=== PATIENT | female | born 1975 | race Caucasian/White ===

== ENCOUNTER 2016-10-05 05:08 | Day surgery (SDC) | payer BC ==
[2016-09-28 11:01] VITALS: BMI 26.1
--- NOTE | 2016-10-04 14:48 | HP ---
Past Medical History - Admission Chief Complaint: Prolonged heavy vaginal bleeding. History of Present Illness: 41 year old female who has regular menses but recently have been associated with heavy bleeding, passing of clots and lasting 9 to 10 days. LMP 09/13/16. A pelvuc ultrasound performed on September 26, 2016 revealed an anteverted uterus measuring 10 by 5 by 6 cm. The endometrium measured 8 mm. There were present anterior and a posterior fibroid. Pap smear and HPV were negative. History Source: Patient Limitations to Obtaining History: No Limitations - Past Medical History ...: 3 ...Para: 2 ...Term: 2 ...Spon : 1 Heme/Onc: Yes: Anemia (Hemoglobin September 23, 2016 10.3 gm) - Past Surgical History Past Surgical History: Yes: Tubal Ligation (Laparoscopy tubal cautery 2013) Hx Myomectomy: No Hx Transabdominal Cerclage: No - Smoking History Smoking history: Never smoked Have you smoked in the past 12 months: No - Alcohol/Substance Use Hx Alcohol Use: No - Social History Usual Living Arrangement: Yes: With Spouse Home Medications - Allergies Allergies/Adverse Reactions: Allergies Allergy/AdvReac Type Severity Reaction Status Date / Time No Known Drug Allergies Allergy Verified 10/05/16 09:00 - Home Medications Home Medications: Ambulatory Orders Meloxicam [Mobic] 15 mg PO PRN PRN 10/05/16 Nadolol 20 mg PO PRN PRN 10/05/16 Family Disease History - Family Disease History Family Disease History: Other: Mother (Renal disease) Review of Systems - Review of Systems Constitutional: reports: No Symptoms Cardiovascular: reports: No Symptoms Respiratory: reports: No Symptoms Genitourinary: reports: No Symptoms Breasts: reports: No Symptoms Reported (Negative mammography September 2016) Hematology/Lymphatic: reports: No Symptoms Physical Exam-CREDIT DEPARTMENT MANAGER Constitutional: Yes: Well Nourished, No Distress, Calm Neck: Yes: WNL, Supple, Trachea Midline Cardiovascular: Yes: WNL, Regular Rate and Rhythm Respiratory: Yes: Regular, CTA Bilaterally Gastrointestinal: Yes: WNL, Soft (Non tender no masses), Tenderness, Epigastrium Pelvis: Yes: WNL External Genitalia: Yes: Normal Vaginal Exam: Yes: Normal Cervix: Yes: Normal Uterus: Yes: Normal, Freely Moveable, Anteverted Adnexa: Normal: Bilateral Edema: No Psychiatric: Yes: WNL Imaging - Results Ultrasound: Report Reviewed (Anteverted fibroid uterus.) Assessment/Plan Impression: Menorrhagia Prolonged Bleeding Anemia Plan: D and C with Hysteroscopy 2016
[2016-10-05] MEDS ORDERED: MIDAZOLAM HCL 2 MG/2 ML SINGLE DOSE VIAL ONE (10:28)
[2016-10-05] MEDS ORDERED: PROPOFOL 20 ML ONE (10:28)
[2016-10-05] MEDS ORDERED: LIDOCAINE HCL/PF 2% SDV 5ML VIAL ONE (10:28)
[2016-10-05 11:50] VITALS: TEMP 98.5
[2016-10-05 13:42] VITALS: BP 101/66; PULSE 75
--- NOTE | 2016-10-06 08:49 | OP ---
DATE OF OPERATION: 10/05/2016 PREOPERATIVE DIAGNOSES: Menorrhagia, prolonged vaginal bleeding. POSTOPERATIVE DIAGNOSES: Menorrhagia, prolonged vaginal bleeding. OPERATION: Dilatation and curettage, hysteroscopy. SURGEON: Jr Kwong MD ANESTHESIA: Arcelia Lea CRNA SPECIMEN: Endometrial curettings. BLOOD LOSS: 10 mL DESCRIPTION OF PROCEDURE: Under general anesthesia, patient placed in the dorsal lithotomy position, prepped and draped in the usual sterile manner. A pelvic examination was performed revealing a uterus that was anterior, slightly enlarged, mobile. Adnexa not palpable. A weighted speculum was inserted in the vagina. The anterior lip of the cervix grasped with a sharp-tooth tenaculum. The uterus sounded to approximately 9 cm. With a 5-mm hysteroscope and saline as the distending medium, the uterine cavity was visualized, revealing a slightly irregular, smooth uterine cavity. No evidence of any polyps or submucosal fibroids. Both ostia were visualized. With these findings noted, the hysteroscope was then removed. The cervix was dilated. The uterus was then curetted. Proliferative-type tissue was obtained. The patient tolerated the procedure well and was brought to recovery in satisfactory condition. JR KWONG M.D. [id number]
--- NOTE | 2016-10-08 12:02 | PATH ---
Surgical Pathology Report Patient Name: ATIYA JIMENEZ [facility]. Rec. #: [id number] /Age/Gender: 1975 (Age: 41) / F Account: [id number] Location: [facility] SURGICAL Taken: 10/05/2016 Received: 10/05/2016 Reported: 10/08/2016 Physicians: Jr Harman M.D. Specimen(s) Received ENDOMETRIAL CURETTINGS Clinical History 41-year-old prolonged heavy menses, fibroid uterus Final Diagnosis ENDOMETRIUM, CURETTAGE: POLYPOID AND NON-POLYPOID FRAGMENTS OF SECRETORY ENDOMETRIUM. FRAGMENTS OF BENIGN SMOOTH MUSCLE. FRAGMENTS OF BENIGN ENDOCERVICAL TISSUE. SCANT FRAGMENTS OF BENIGN SQUAMOUS EPITHELIUM. Electronically Signed Olegario Dumont M.D. Gross Description Received in formalin labeled "endometrial curettings" is a 4.0 x 3.8 x 0.4 cm aggregate of mcdowell-brown soft tissue fragments admixed with blood clot. The formalin is filtered and the specimen is entirely submitted in 3 cassettes. /10/05/[facility]
== END 2016-10-05 13:00 | disposition home or self-care (01) ==
LOC: JASU-SURG 05:08
PROVIDERS: ATTEND Obstetrics & Gynecology
PROC: 0UDB8ZX Extraction of Endometrium, Via Natural or Artificial Opening Endoscopic, Diagnostic (ICD-10-PCS; principal; 2016-10-05 10:00)
DX: N92.0 Excessive and frequent menstruation with regular cycle (principal)
CPT/HCPCS: 84703; 88305-TC; 94760

== ENCOUNTER 2017-10-22 23:00 | Emergency (ER) | payer BC ==
[2017-10-22] MEDS ORDERED: ALBUTEROL SO4 2.5/IPRATROPIUM 0.5 INH SOL 3 ML VIAL.NEB. NEB ONE (23:34)
[2017-10-22 23:57] LABS: BASO % 0.6 % (0-2.0); EOS % 1.2 % (0-4.5); HEMATOCRIT 33.6 % (32.4-45.2); HEMOGLOBIN 11.5 GM/dL (10.7-15.3); LYMPH % 32.3 % (8-40); MCH 29.1 pg (25.7-33.7); MCHC 34.3 g/dl (32.0-36.0); MEAN CELL VOLUME 84.8 fl (80-96); MEAN PLT VOLUME 9.3 fl (7.5-11.1); MONO % 9.6 % (3.8-10.2); NEUT % 56.3 % (42.8-82.8); PLATELET COUNT 168 K/MM3 (134-434); RBC 3.97 M/mm3 (3.60-5.2); RDW 12.7 % (11.6-15.6); WHITE BLOOD COUNT 5.3 K/mm3 (4.0-10.0)
--- NOTE | 2017-10-23 00:02 | PDOC ---
History of Present Illness - General Chief Complaint: Shortness of Breath Stated Complaint: SOB Time Seen by Provider: 10/22/17 23:34 History Source: Patient Exam Limitations: No Limitations - History of Present Illness Initial Comments: 10/22/17 23:58 The patient is a 42F with a PMH of asthma, seasonal allergies, and GERD who presents to the ER with complaints of shortness of breath and chest heaviness. The patient states that she first developed her SOB on October 10 when she traveled to [place]. She dismissed it as allergies and an adjustment to weather in [place]. She returned home yesterday from [place] and has felt continuous shortness of breath and chest heaviness. Earlier tonight, she felt a brief episode where she was unable to catch her breath and she called EMS. She denies fever, chills, nausea, vomiting but admits to chest heaviness which is retrosternal without radiation. She denies any OCP use, hemoptysis, hx of DVT/PE , swelling of LE, smoking. Past History - Past Medical History Allergies/Adverse Reactions: Allergies Allergy/AdvReac Type Severity Reaction Status Date / Time No Known Drug Allergies Allergy Verified 10/22/17 23:48 Home Medications: Ambulatory Orders Meloxicam [Mobic] 15 mg PO PRN PRN 10/05/16 Nadolol 20 mg PO PRN PRN 10/05/16 Albuterol Sulfate Inhaler - [Ventolin Hfa Inhaler -] 1 - 2 inh PO Q4H #1 inhaler 10/23/17 Anemia: No Asthma: Yes Cancer: No Cardiac Disorders: No CVA: No COPD: No CHF: No Dementia: No Diabetes: No GI Disorders: Yes (ACID REFLUX) Disorders: No HTN: No Hypercholesterolemia: No Liver Disease: No Seizures: No Thyroid Disease: No - Surgical History Abdominal Surgery: No Appendectomy: No Cardiac Surgery: No Cholecystectomy: No Lung Surgery: No Neurologic Surgery: No Orthopedic Surgery: No - Suicide/Smoking/Psychosocial Hx Smoking History: Never smoked Have you smoked in the past 12 months: No Information on smoking cessation initiated: No Hx Alcohol Use: No Drug/Substance Use Hx: No Substance Use Type: None Hx Substance Use Treatment: No Review of Systems - Review of Systems Able to Perform ROS?: Yes Comments:: 10/23/17 00:02 GENERAL/CONSTITUTIONAL: No fever or chills. No weakness. HEAD, EYES, EARS, NOSE AND THROAT: No change in vision. No ear pain or discharge. No sore throat. CARDIOVASCULAR: Positive for chest pressure. No chest pain, palpitations, or lightheadedness. RESPIRATORY: Positive for shortness of breath. No cough, wheezing, or hemoptysis. GASTROINTESTINAL: No nausea, vomiting, diarrhea, constipation, or abdominal pain. GENITOURINARY: No dysuria, frequency, hematuria, or change in urination. MUSCULOSKELETAL: No joint or muscle swelling or pain. No neck or back pain. SKIN: No rash or lesions. NEUROLOGIC: No headache, numbness, tingling, focal weakness, loss of consciousness, or change in strength/sensation. ENDOCRINE: No increased thirst. No abnormal weight change. HEMATOLOGIC/LYMPHATIC: No anemia, easy bleeding, or history of blood clots. ALLERGIC/IMMUNOLOGIC: No hives or skin allergy. Is the patient limited Uzbek proficient: No *Physical Exam - Vital Signs Last Vital Signs Temp Pulse Resp BP Pulse Ox 97.7 F 75 20 104/75 98 10/22/17 23:49 10/22/17 23:49 10/22/17 23:49 10/22/17 23:49 10/22/17 23:49 - Physical Exam Comments: 10/23/17 00:04 GENERAL: Well developed, well nourished. Awake and alert. In mild distress. HEENT: Normocephalic, atraumatic. Hearing grossly normal. Moist mucous membranes. PERRLA, EOMI. No conjunctival pallor. Sclera are non-icteric. NECK: Supple. Full ROM. CARDIOVASCULAR: Regular rate and rhythm. No murmurs, rubs, or gallops. PULMONARY: No evidence of respiratory distress. Lungs clear to auscultation bilaterally. No wheezing, rales or rhonchi. ABDOMINAL: Soft. Non-tender. Non-distended. No rebound or guarding. GENITOURINARY: No CVA tenderness bilaterally. MUSCULOSKELETAL: Normal range of motion at all joints. No bony deformities or tenderness. EXTREMITIES: No cyanosis. No clubbing. No edema. No calf tenderness or swelling. SKIN: Warm and dry. Normal capillary refill. No rashes. No jaundice. NEUROLOGICAL: Alert, awake, appropriate. Cranial nerves 2-12 intact. Normal speech. Gait is normal without ataxia. PSYCHIATRIC: Cooperative. Good eye contact. Appropriate mood and affect. ED Treatment Course - LABORATORY CBC & Chemistry Diagram: 10/22/17 23:45 10/22/17 23:45 - RADIOLOGY Radiology Studies Ordered: Category Date Time Status CHEST CTA [CT] Stat CT Scan 10/22/17 23:34 Ordered Medical Decision Making - Medical Decision Making 10/23/17 00:04 The patient is a 42F with a PMH of asthma, seasonal allergies, and GERD who presents with SOB and chest heaviness concerning for PE due to pt's recent travel. Pending EKG and labs and CTA. Pt has normal vitals (not hypoxic, tachycardic, or tachypneic). 10/23/17 01:44 EKG unremarkable. CBC, CMP, troponin negative. CTA negative for acute PE or dissection. Will give 2 duonebs and reassess. 10/23/17 02:28 Pt states she feels much better. Will d/c w/ PCP f/u. *DC/Admit/Observation/Transfer Diagnosis at time of Disposition: Chest heaviness - Discharge Dispostion Disposition: HOME Condition at time of disposition: Stable Decision to Admit order: No - Prescriptions Prescriptions: Albuterol Sulfate Inhaler - [Ventolin Hfa Inhaler -] 1 - 2 inh PO Q4H #1 inhaler - Referrals Referrals: Denis Osorio MD [Primary Care Provider] - - Patient Instructions Printed Discharge Instructions: DI for Atypical Chest Pain Additional Instructions: Please follow up with your primary care physician in 2-3 days. Please return to the ER if you have any signs or symptoms of chest pain, shortness of breath, uncontrollable fever, chills, nausea, vomiting, numbness, tingling, or weakness in any part of your body, changes in vision, or slurred speech. Please take your medications as prescribed. Please return to the ER if symptoms persist, worsen, or new symptoms arise. - Post Discharge Activity Forms/Work/School Notes: Back to Work
[2017-10-23 00:05] VITALS: TEMP 97.7; BMI 27.6
[2017-10-23 00:11] LABS: INR 0.94 (0.83-1.09); PROTHROMBIN TIME (PATIENT) 10.6 SEC (9.7-13.0)
[2017-10-23 00:20] LABS: ALBUMIN 3.6 g/dl (3.4-5.0); ANION GAP 8 MMOL/L (8-16); BILIRUBIN,TOTAL 0.2 mg/dL (0.2-1.0); BLOOD UREA NITROGEN 12 mg/dL (7-18); CALCIUM 8.5 mg/dL (8.5-10.1); CHLORIDE 108 mmol/L (98-107); CO2 27 mmol/L (21-32); CREATININE 0.7 mg/dL (0.55-1.02); GLUCOSE,RANDOM 94 mg/dL (74-106); POTASSIUM 3.7 mmol/L (3.5-5.1); SGOT/AST 27 U/L (15-37); SGPT/ALT 41 U/L (12-78); SODIUM 143 mmol/L (136-145); TOT PROT 6.7 g/dl (6.4-8.2)
[2017-10-23 00:22] LABS: ALK PHOS 38 U/L (45-117)
--- NOTE | 2017-10-23 01:56 | PDOC ---
Attending Attestation - Resident Resident Name: Chacorta Peraza - ED Attending Attestation I have performed the following: I have examined & evaluated the patient, The case was reviewed & discussed with the resident, I agree w/resident's findings & plan - HPI HPI: 10/23/17 03:06 Devon 42 YOF PMHx GERD, gastritis, asthma with recent travel from [place] presenting with progressive SOB and chest heaviness for the past week and a half. Patient is attributing her symptoms to weather changes and recent travel to [place]. Patient reports returning from [place] yesterday. Patient notes her shortness of breath worsened today prompting her to come to the ER for evaluation. Patient denies any history of DVT or PE. The patient denies headache, and dizziness. Denies fever, chills, nausea, vomit, diarrhea, and constipation. Denies dysuria, frequency, urgency, and hematuria. Allergies: NKA Past surgical history: None reported. Social history: No reported alcohol, drug, or cigarette use. PCP: Dr. Osorio - Physicial Exam PE: 10/23/17 03:06 NAD, well appearing, MMM, nl conjunctiva, anicteric; neck supple. lungs clear, RRR, abdomen soft nontender. REINOSO x4, no focal neuro deficits. No peripheral edema. normal color for ethnicity, WWP. - Medical Decision Making 10/23/17 01:58 MDM: Devon 42 YOF PMHx GERD, gastritis, asthma with recent travel from [place] presenting with progressive SOB and chest heaviness x 1.5 weeks, which she attributed to weather related changes and travel. No leg swelling, abd pain, vomiting, diarrhea, cough or congestion, mckeon or dizziness, fevers or chills. DDx chest pain: ACS, PE, dissection, PUD, esophageal spasm, GERD, gastritis, costochondritis, pneumonia, pleurisy, pericarditis/myocarditis. dehydration, electrolyte/metabolic derangements. Allergies, congestion, viral syndrome Vital signs reviewed, wnl. reassuring, no respiratory distress. Medical Plan: CBC, CMP, ECG, trops/card panel, CXR, CT Angio to r/o PE Prior notes reviewed, including admissions, discharges and consultations. laboratory results and imaging reviewed, basic labs and lytes wnl, notable forneg trops, reassuring. EKG normal sinus rhythm, no interval abnormalities, narrow QRS, ST and T wave segments and morphology normal. Nonspecific T wave abnormalities, not significantly changed from prior. CT angio chest neg for PE or acute pulm/CVS pathology Trial of albuterol nebs, likely allergies with recent travel. Avoid triggers and precipitants Dispo: Pt to be discharged in stable condition. Patient and family made aware of impression and plan, return precautions discussed (including but not limited to worsening pain or symptoms), fevers, or signs of infection, chest pain, respiratory distress, inability to tolerate oral intake, dehydration, syncope, or neurologic changes). Follow up with PMD and/or specialist as recommended, follow up information provided, take medications as instructed for duration of time. continue with supportive care, avoid triggers and precipitants. All questions answered to patient's satisfaction and expressed understanding and comfort with this. 10/23/17 02:06
[2017-10-23 02:45] VITALS: BP 119/73
--- NOTE | 2017-10-23 11:31 | EKG ---
Test Reason : Blood Pressure : / mmHG Vent. Rate : 076 BPM Atrial Rate : 076 BPM P-R Int : 144 ms QRS Dur : 078 ms QT Int : 416 ms P-R-T Axes : 051 066 057 degrees QTc Int : 468 ms NORMAL SINUS RHYTHM NORMAL ECG WHEN COMPARED WITH ECG OF 24-MAY-2011 11:04, NO SIGNIFICANT CHANGE WAS FOUND Confirmed by MARIBEL VALERO MD ([id number]) on 10/23/2017 11:31:30 AM Referred By: Confirmed By:MARIBEL VALERO MD
[2017-10-24 02:52] VITALS: PULSE 72
== END 2017-10-23 02:46 | disposition home or self-care (01) ==
LOC: JER 23:00
PROC: 3E0F7GC Introduction of Other Therapeutic Substance into Respiratory Tract, Via Natural or Artificial Opening (ICD-10-PCS; principal; 2017-10-22)
DX: R07.89 Other chest pain (principal); J45.909 Unspecified asthma, uncomplicated; K21.9 Gastro-esophageal reflux disease without esophagitis
CPT/HCPCS: 36415; 71275-TC; 80053; 82550; 84484; 84703; 85025; 85610; 93005; 93010; 99283-25; J7620

== ENCOUNTER 2018-07-18 12:00 | Day surgery (SDC) | payer BC ==
[2018-07-17 08:28] VITALS: BMI 28.3
--- NOTE | 2018-07-18 13:38 | HP ---
History & Physical Update - History History: No Change (Menorrhagia, firboid uterus. Pt admitted for hysteroscopy and endometrial ablation) - Physical Physical: No Change - Assessment Assessment: No Change (Pt is currently bleeding and reports heavy bleeding at times.) - Plan Plan: No Change (Hysteroscopy, D&C, thermal endometrial ablation. We had discussed the risks, benefits, alternatives of surgery at length including but not limited to infection, bleeding, scarring, perforation, amenorrhea, infertility, hysterectomy, etc. We also discussed the specific risks of thermal ablation including thermal injury, and failed ablation. The pt verbalized understanding and requested to proceed with surgery. I emphasized that all surgeries have risks and no guarantees can be provided)
[2018-07-18] MEDS ORDERED: SUCCINYLCHOLINE CHLORIDE 200 MG/10 ML VIAL ONE (13:40)
[2018-07-18] MEDS ORDERED: PROPOFOL 20 ML ONE ×3 (13:40→13:43)
[2018-07-18] MEDS ORDERED: MIDAZOLAM HCL 2 MG/2 ML SINGLE DOSE VIAL ONE (13:40)
[2018-07-18] MEDS ORDERED: DEXAMETHASONE SOD PHOSPHATE 4 MG/1 ML VIAL ONE (13:40)
[2018-07-18] MEDS ORDERED: ceFAZolin SODIUM 1 GM VIAL IVPB ONE (13:42)
[2018-07-18] MEDS ORDERED: ceFAZolin SODIUM 1 GM VIAL ONE (13:45)
[2018-07-18] MEDS ORDERED: KETOROLAC TROMETHAMINE 30 MG/1 ML VIAL ONE (14:20)
[2018-07-18] MEDS ORDERED: ONDANSETRON 4 MG/2 ML VIAL IVPUSH PRN (14:46)
[2018-07-18] MEDS ORDERED: oxyCODONE HCL 5 MG TABLET PO PRN (14:46)
--- NOTE | 2018-07-18 14:51 | OP ---
Operative Note - Note: Operative Date: 07/18/18 Pre-Operative Diagnosis: Menometrorrhagia, fibroid uterus Operation: Hysteroscopy, D&C, thermal endometrial ablation Findings: Active uterine bleeding with clots. Uterine fibroids palpated on exam. Uncomplicated hysteroscopy, D&C, endometrial ablation Post-Operative Diagnosis: Same as Pre-op Surgeon: Ovidio Renee Anesthesiologist/ELECTRIC SERVICEMAN: Lucrecia Simental Anesthesia: General Specimens Removed: Endometrial curettings Estimated Blood Loss (mls): 30 Drains & Tubes with Location: Straight cath prior to surgery Drains, Volume Out (mls): 15 Blood Volume Replaced (mls): 0 Fluid Volume Replaced (mls): 400 Operative Report Dictated: Yes
[2018-07-18] MEDS ORDERED: LACTATED RINGERS SOLUTION 1,000 ML IV SCH (15:00)
[2018-07-18] MEDS ORDERED: ACETAMINOPHEN 1000 MG/100 ML VIAL (NON FORMULARY) IVPB ONE (15:33)
[2018-07-18] MEDS ORDERED: ACETAMINOPHEN INJECTION 100 ML IVPB ONE (15:34)
[2018-07-18] MEDS ORDERED: oxyCODONE HCL 5 MG TABLET ONE (17:38)
[2018-07-18] MEDS ORDERED: oxyCODONE HCL 5 MG TABLET PO ONE (17:42)
[2018-07-18 19:54] VITALS: BP 109/71; PULSE 84; TEMP 97.4
--- NOTE | 2018-07-19 08:55 | OP ---
DATE OF OPERATION: 07/18/2018 PREOPERATIVE DIAGNOSIS: Menometrorrhagia, fibroid uterus. POSTOPERATIVE DIAGNOSIS: Menometrorrhagia, fibroid uterus. PROCEDURES PERFORMED: Hysteroscopy, dilatation and curettage, thermal endometrial ablation using Genesys HTA (Room 77). SURGEON: Ovidio Renee MD ANESTHESIOLOGIST: Lucrecia Simental M.D. ANESTHESIA: General. COMPLICATIONS: None. ESTIMATED BLOOD LOSS: 30 mL. INTRAVENOUS FLUIDS: Crystalloid 400 mL. URINE OUTPUT: Urine 15 mL was obtained prior to surgery with a straight catheterization. PATHOLOGY: Endometrial curettings. FINDINGS: Examination under anesthesia revealed a slightly enlarged uterus with fibroids. Active uterine bleeding was noted, consistent with the patient's complaints. During hysteroscopy, multiple uterine blood clots were noted. Uncomplicated hysteroscopy, dilatation and curettage, and endometrial ablation. DESCRIPTION OF PROCEDURE: The patient was met preoperatively. The risks, benefits and alternatives of surgery were discussed in detail. All questions were answered. The patient was brought to the OR, with the IV running. She was placed on the surgical table in the supine position. General anesthesia was achieved without difficulty. The patient was placed in a dorsal lithotomy position using adjustable Malick stirrups. She was examined under anesthesia. Active uterine bleeding was noted. The uterus appeared enlarged, consistent with approximately 8 weeks size. The patient was then prepped and draped in the usual sterile fashion. A straight catheterization was performed and 15 mL of urine was drained from the bladder. A weighted speculum was introduced inside the vagina, with good visualization of the cervix. The cervix was grasped with a single-tooth tenaculum. A diagnostic hysteroscopy was introduced inside the uterine cavity. The cervix did not need to be dilated. Diagnostic hysteroscopy revealed an enlarged uterine cavity with multiple blood clots. The hysteroscope was then removed and a sharp uterine curettage was performed. The tissue was sent for pathology evaluation. Once the uterine curettage was completed, the hysteroscope was once again placed inside the uterine cavity. A good seal was confirmed prior to starting endometrial ablation. The endometrial ablation was then performed without complications under direct visualization. Excellent results were noted. Once the endometrial ablation was completed, a diagnostic hysteroscopy was once again performed, and good hemostasis was observed. All of the instruments were removed from the patient. Sponge, lap and instrument counts were correct. Once again, good hemostasis was confirmed. The patient was returned to the supine position and transferred to the recovery room in stable condition. Pal [id number]
--- NOTE | 2018-07-22 12:34 | PATH ---
Surgical Pathology Report Patient Name: ATIYA JIMENEZ [facility]. Rec. #: [id number] /Age/Gender: 1975 (Age: 42) / F Account: [id number] Location: [facility] SURGICAL Taken: 07/18/2018 Received: 07/21/2018 Reported: 07/22/2018 Physicians: Ovidio Renee M.D. Specimen(s) Received ENDOMETRIAL CURETTINGS Clinical History Fibroids, menorrhagia Final Diagnosis ENDOMETRIAL CURETTINGS, DILATATION AND CURETTAGE: FRAGMENTS OF WEAKLY PROLIFERATIVE ENDOMETRIUM, LOWER UTERINE SEGMENT, SCANT BENIGN ENDOCERVICAL GLANDS, AND SCANT FIBROMUSCULAR TISSUE ADMIXED WITH BLOOD CLOTS. Electronically Signed Karis Brown M.D. Gross Description Received in formalin labeled "endometrial curettings," is a 5.0 x 4.3 x 0.6 cm aggregate of mcdowell-brown soft tissue fragments admixed with blood clot. The formalin is filtered and the specimen is entirely submitted in 5 cassettes. /07/21/2018 [place]07/21/2018
== END 2018-07-18 19:55 | disposition home or self-care (01) ==
LOC: JASU-SURG 12:00
PROVIDERS: ATTEND Obstetrics & Gynecology
PROC: 0U5B8ZZ Destruction of Endometrium, Via Natural or Artificial Opening Endoscopic (ICD-10-PCS; principal; 2018-07-18 15:30)
PROC: 0UDB7ZX Extraction of Endometrium, Via Natural or Artificial Opening, Diagnostic (ICD-10-PCS; 2018-07-18 15:30)
DX: N92.1 Excessive and frequent menstruation with irregular cycle (principal); D25.9 Leiomyoma of uterus, unspecified
CPT/HCPCS: 36415; 84702; 86850; 86900; 86901; 88305-TC; 94760; J0131

== ENCOUNTER 2020-03-13 00:36 | Emergency (ER) | payer BC ==
[2020-03-13 01:18] VITALS: BMI 26.6
[2020-03-13 01:51] LABS: PH,URINE 7.5 (5.0-8.0); URINE APPEARANCE CLEAR; URINE BILIRUBIN NEGATIVE (NEGATIVE); URINE COLOR YELLOW; URINE GLUCOSE (UA) NEGATIVE (NEGATIVE); URINE KETONE NEGATIVE (NEGATIVE); URINE LEUK ESTERASE NEGATIVE (NEGATIVE); URINE NITRITE NEGATIVE (NEGATIVE); URINE PROTEIN NEGATIVE (NEGATIVE)
[2020-03-13 02:03] LABS: BASO % 0.6 % (0-2.0); EOS % 0.7 % (0-4.5); HEMATOCRIT 39.7 % (32.4-45.2); HEMOGLOBIN 13.7 GM/dL (10.7-15.3); LYMPH % 21.6 % (8-40); MCH 30.4 pg (25.7-33.7); MCHC 34.5 g/dl (32.0-36.0); MEAN CELL VOLUME 88.2 fl (80-96); MONO % 7.4 % (3.8-10.2); NEUT % 69.7 % (42.8-82.8); PLATELET COUNT 153 K/MM3 (134-434); RDW 12.9 % (11.6-15.6); WHITE BLOOD COUNT 9.3 K/mm3 (4.0-10.0)
[2020-03-13 02:27] LABS: POTASSIUM 3.7 mmol/L (3.5-5.1)
[2020-03-13 02:39] LABS: ALBUMIN 4.2 g/dl (3.4-5.0); BILIRUBIN,TOTAL 0.4 mg/dL (0.2-1); CALCIUM 8.8 mg/dL (8.5-10.1); CREATININE 0.6 mg/dL (0.55-1.3); TOT PROT 7.5 g/dl (6.4-8.2)
[2020-03-13] MEDS ORDERED: ACETAMINOPHEN 1000 MG/100 ML VIAL (NON FORMULARY) IVPB ONE (02:50)
[2020-03-13] MEDS ORDERED: ACETAMINOPHEN INJECTION 100 ML IVPB ONE (03:02)
[2020-03-13] MEDS ORDERED: KETOROLAC TROMETHAMINE 15 MG/ML VIAL IVPUSH ONE (03:43)
[2020-03-13] MEDS ORDERED: KETOROLAC TROMETHAMINE 30 MG/1 ML VIAL ONE (03:48)
[2020-03-13 03:53] VITALS: BP 102/63; PULSE 75; TEMP 98.5
== END 2020-03-13 04:46 | disposition home or self-care (01) ==
LOC: JER 00:36
PROC: 3E033NZ Introduction of Analgesics, Hypnotics, Sedatives into Peripheral Vein, Percutaneous Approach (ICD-10-PCS; principal; 2020-03-13)
PROC: 3E0333Z Introduction of Anti-inflammatory into Peripheral Vein, Percutaneous Approach (ICD-10-PCS; 2020-03-13)
DX: R10.9 Unspecified abdominal pain (principal)
CPT/HCPCS: 36415; 74177-TC; 76705-TC; 80053; 81003; 82550; 83605; 83690; 84484; 84703; 85025; 87086; 99285-25; J0131; Q9967

== ENCOUNTER 2020-08-15 05:25 | Day surgery (SDC) | payer BC ==
[2020-08-12 08:09] VITALS: BMI 26.8
[2020-08-15] MEDS ORDERED: DESFLURANE GAS 240 ML BOTTLE IH ONE (07:27)
[2020-08-15] MEDS ORDERED: PROPOFOL 20 ML ONE (07:28)
[2020-08-15] MEDS ORDERED: ROCURONIUM BROMIDE 50 MG/5 ML SYRINGE ONE ×2 (07:28→09:09)
[2020-08-15] MEDS ORDERED: MIDAZOLAM HCL 2 MG/2 ML SINGLE DOSE VIAL ONE (07:28)
[2020-08-15] MEDS ORDERED: BUPIVACAINE HCL/PF 0.5% (5MG/ML) 10 ML VIAL ONE ×2 (07:34→07:35)
[2020-08-15] MEDS ORDERED: ceFAZolin 2 GRAM PREMIX BAG IVPB ONE (08:35)
[2020-08-15] MEDS ORDERED: ceFAZolin SODIUM 1 GM VIAL ONE (08:36)
[2020-08-15] MEDS ORDERED: ONDANSETRON 4 MG/2 ML VIAL IVPUSH PRN (09:31)
[2020-08-15] MEDS ORDERED: LACTATED RINGERS SOLUTION 1,000 ML IV SCH (09:45)
[2020-08-15] MEDS ORDERED: NEOSTIGMINE METHYLSULFATE 0.5 MG/ML - 10 ML MDV ONE (11:11)
[2020-08-15] MEDS ORDERED: BUPIVACAINE HCL/PF 0.5% (5 MG/ML) 30 ML VIAL IJ ONE (11:15)
[2020-08-15] MEDS ORDERED: ACETAMINOPHEN 325 MG TABLET (FP) PO PRN (12:22)
[2020-08-15] MEDS ORDERED: IBUPROFEN 600 MG TABLET (FP) PO PRN (12:22)
[2020-08-15] MEDS ORDERED: IBUPROFEN 800 MG/8 ML IJ IVPB PRN (12:25)
[2020-08-15] MEDS: ACETAMINOPHEN 1000 MG/100 ML VIAL (NON FORMULARY) IVPB PRN ×2 (12:45→21:45)
[2020-08-15] MEDS ORDERED: ACETAMINOPHEN INJECTION 100 ML IVPB ONE (12:49)
[2020-08-15] MEDS: oxyCODONE HCL 5 MG TABLET PO PRN (14:49)
[2020-08-15] MEDS: CEFAZOLIN 2 GM/D5W 2 GM/50 ML ML IVPB SCH (17:58)
[2020-08-16] MEDS: DOCUSATE SODIUM 100 MG CAPSULE (FP) PO PRN ×2 (00:38→09:57)
[2020-08-16] MEDS: CEFAZOLIN 2 GM/D5W 2 GM/50 ML ML IVPB SCH (01:50)
[2020-08-16 08:57] LABS: EOS % 0.5 % (0-4.5); HEMATOCRIT 33.5 % (32.4-45.2); HEMOGLOBIN 11.2 GM/dL (10.7-15.3); LYMPH % 20.7 % (8-40); MCH 28.9 pg (25.7-33.7); MCHC 33.3 g/dl (32.0-36.0); MEAN CELL VOLUME 86.8 fl (80-96); MEAN PLT VOLUME 10.5 fl (7.5-11.1); MONO % 8.4 % (3.8-10.2); NEUT % 68.4 % (42.8-82.8); PLATELET COUNT 120 10^3/uL (134-434); RBC 3.86 M/mm3 (3.60-5.2); RDW 13.2 % (11.6-15.6); WHITE BLOOD COUNT 8.7 K/mm3 (4.0-10.0)
[2020-08-16 09:14] LABS: CALCIUM 7.9 mg/dL (8.5-10.1)
[2020-08-16 09:15] LABS: BLOOD UREA NITROGEN 4.9 mg/dL (7-18)
[2020-08-16 09:19] LABS: BILIRUBIN,TOTAL 0.5 mg/dL (0.2-1); CREATININE 0.4 mg/dL (0.55-1.3)
[2020-08-16 09:20] LABS: TOT PROT 5.6 g/dl (6.4-8.2)
[2020-08-16 09:28] LABS: ALBUMIN 3.1 g/dl (3.4-5.0)
[2020-08-16] MEDS: oxyCODONE HCL 5 MG TABLET PO PRN (09:55)
[2020-08-16] MEDS ORDERED: ENOXAPARIN NA (PORCINE) 40 MG/0.4 ML DISP.SYRIN SQ SCH (10:00)
[2020-08-16 10:58] VITALS: BP 98/61; PULSE 87; TEMP 99.2
== END 2020-08-16 13:54 | disposition home or self-care (01) ==
LOC: JASUSAT 05:25 → J3W 14:27 → JASUSAT 08-16 13:54
PROVIDERS: ATTEND Obstetrics & Gynecology
PROC: 0UT7FZZ Resection of Bilateral Fallopian Tubes, Via Natural or Artificial Opening With Percutaneous Endoscopic Assistance (ICD-10-PCS; 2020-08-15)
PROC: 0UT9FZZ Resection of Uterus, Via Natural or Artificial Opening With Percutaneous Endoscopic Assistance (ICD-10-PCS; principal; 2020-08-15 08:54)
PROC: 0UT2FZZ Resection of Bilateral Ovaries, Via Natural or Artificial Opening With Percutaneous Endoscopic Assistance (ICD-10-PCS; 2020-08-15 08:54)
DX: N92.1 Excessive and frequent menstruation with irregular cycle (principal); D25.9 Leiomyoma of uterus, unspecified; N80.0 Endometriosis of uterus
CPT/HCPCS: 36415; 80053; 85025; 88302-TC; 88307-TC; 94010; 94760; J0131

== ENCOUNTER 2021-11-27 04:18 | Day surgery (SDC) | payer BC ==
[2021-11-23 15:10] VITALS: BMI 27.4
[2021-11-27] MEDS ORDERED: MIDAZOLAM HCL 2 MG/2 ML SINGLE DOSE VIAL ONE (12:44)
[2021-11-27] MEDS ORDERED: ceFAZolin SODIUM 1 GM VIAL IVPB ONE (13:11)
[2021-11-27] MEDS ORDERED: LIDOCAINE 1%/EPI 1:100000 (20 ML MULTI DOSE VIAL) ONE (13:15)
[2021-11-27] MEDS ORDERED: LIDOCAINE 1%/EPI 1:100000 (50 ML MULTI DOSE VIAL) NR ONE ×2 (13:21)
[2021-11-27] MEDS ORDERED: PROPOFOL 20 ML ONE (13:22)
[2021-11-27] MEDS ORDERED: SILVER NITRATE 75% APPLIC STCK 1 PKT EACH TP ONE (13:25)
[2021-11-27] MEDS ORDERED: ONDANSETRON 4 MG/2 ML VIAL IVPUSH PRN (13:56)
[2021-11-27] MEDS ORDERED: oxyCODONE HCL 5 MG TABLET PO PRN (13:56)
[2021-11-27] MEDS ORDERED: ONDANSETRON 4 MG/2 ML VIAL ONE (14:01)
[2021-11-27 16:11] VITALS: BP 110/72; PULSE 64; RESP 209; TEMP 97.4
== END 2021-11-27 16:11 | disposition home or self-care (01) ==
LOC: JASU-SURG 04:18
PROVIDERS: ATTEND Obstetrics & Gynecology
PROC: 0UBG7ZZ Excision of Vagina, Via Natural or Artificial Opening (ICD-10-PCS; principal; 2021-11-27 12:00)
DX: N93.0 Postcoital and contact bleeding (principal); N84.2 Polyp of vagina
CPT/HCPCS: 88304-TC; 94760

== ENCOUNTER 2022-02-01 03:58 | Day surgery (SDC) | payer BC ==
[2022-01-31 12:41] VITALS: BMI 27.7
[2022-02-01] MEDS ORDERED: LIDOCAINE HCL/PF 2% SDV 5ML VIAL ONE ×2 (10:51→10:52)
[2022-02-01] MEDS ORDERED: SUCCINYLCHOLINE CHLORIDE 200 MG/10 ML SYRINGE ONE (10:51)
[2022-02-01] MEDS ORDERED: MIDAZOLAM HCL 2 MG/2 ML SINGLE DOSE VIAL ONE (10:51)
[2022-02-01] MEDS ORDERED: FENTANYL CITRATE/PF 50 MCG/ML VIAL ONE ×3 (10:51→11:29)
[2022-02-01] MEDS ORDERED: PROPOFOL 20 ML ONE ×2 (10:53)
[2022-02-01] MEDS ORDERED: DEXAMETHASONE SOD PHOSPHATE 4 MG/1 ML VIAL ONE (11:11)
[2022-02-01] MEDS ORDERED: BUPIVACAINE HCL/PF 0.5% (5MG/ML) 10 ML VIAL ONE (11:20)
[2022-02-01] MEDS ORDERED: ceFAZolin SODIUM 1 GM VIAL ONE ×2 (11:32)
[2022-02-01] MEDS ORDERED: ceFAZolin SODIUM 1 GM VIAL IVPB ONE (11:32)
[2022-02-01] MEDS ORDERED: BUPIVACAINE HCL/PF 0.5% (5 MG/ML) 30 ML VIAL IJ ONE ×2 (11:39)
[2022-02-01] MEDS ORDERED: MICROFIBRILLAR COLLAGEN 1 GM EACH NR ONE (12:19)
[2022-02-01] MEDS ORDERED: oxyCODONE HCL 5 MG TABLET PO PRN (12:54)
[2022-02-01] MEDS ORDERED: ONDANSETRON 4 MG/2 ML VIAL IVPUSH PRN (12:54)
[2022-02-01] MEDS ORDERED: ACETAMINOPHEN 1000 MG/100 ML BAG IVPB ONE ×2 (12:55→13:18)
[2022-02-01] MEDS ORDERED: LACTATED RINGERS SOLUTION 1,000 ML IV SCH (13:00)
[2022-02-01] MEDS ORDERED: ACETAMINOPHEN INJECTION 100 ML IVPB ONE (13:16)
[2022-02-01] MEDS ORDERED: ONDANSETRON 4 MG/2 ML VIAL ONE (16:35)
[2022-02-01 17:54] VITALS: BP 115/69; PULSE 75; RESP 18; TEMP 98
== END 2022-02-01 17:54 | disposition home or self-care (01) ==
LOC: JASU-SURG 03:58
PROVIDERS: ATTEND Surgery
PROC: 0GTH0ZZ Resection of Right Thyroid Gland Lobe, Open Approach (ICD-10-PCS; principal; 2022-02-01 10:30)
DX: C73 Malignant neoplasm of thyroid gland (principal)
CPT/HCPCS: 88307-TC; 94760